=== PATIENT | male | born 1975 | race Caucasian/White ===

== ENCOUNTER 2023-12-19 15:33 | Emergency (ER) | payer OTHER, SELFPAY ==
[2023-12-19 15:38] VITALS: BP 135/95
--- NOTE | 2023-12-19 15:54 | ED.GENMED ---
History of Present Illness
General
Chief Complaint: Crisis Evaluation
Time Seen by Provider: 12/19/23 15:46
History of Present Illness
History of Present Illness:
HPI: Patient is here due to suicidal ideation. He states that his friends helped him get here today and is eager for help. He denies any drug or alcohol use. He denies any medical concerns. His main social stressor involves his 6-year-old son
and his 'narcissist' mother of the child. Children and youth have been involved. He says he had access to pills last night that he would have taken but will not tell me exactly what pills he had.
EXAM:
GENERAL: Well appearing in no distress
HEENT: Moist oral mucosa
CARDIOVASCULAR: No murmurs, borderline tachycardic heart rate, regular rhythm, No chest wall tenderness
PULMONARY: No respiratory distress, breath sounds are clear and equal
ABDOMEN: Soft with no peritoneal signs, no tenderness
NEUROLOGIC: Excellent strength all extremities, no coordination deficits
PSYCHIATRIC: Appears somewhat withdrawn, flat depressed affect and other times has recurrent thoughts that he voices such as being upset about needing to be seen through the emergency department as opposed to going to crisis directly
EXTREMITIES: Nontender, no edema, moves all extremities equally
SKIN: No rash, no lesions
TIME OF INITIAL ENCOUNTER: 4 PM
NUMBER AND COMPLEXITY OF PROBLEMS ADDRESSED AT THE ENCOUNTER
� Chronic conditions affecting care: TBI, smoker, high blood pressure, hyperlipidemia
� Acute Exacerbation and/or Progression of Chronic Illness: This is an acute but is had similar episodes in the past
� Differential Diagnosis includes: Suicidal ideation, suicidal gesture, worsening anxiety/depression
AMOUNT AND/OR COMPLEXITY OF DATA TO BE REVIEWED AND ANALYZED
� I performed an independent evaluation of and my interpretation is:
EKG:
CT:
X-rays:
Laboratory Studies: White count 16.5 of doubtful clinical significance, hemoglobin level normal, no significant chemistry abnormality, salicylates and acetaminophen and alcohol undetected
Other:
� Review of other/old records: The patient was here with chest pain in October 2022
� Clinical information was obtained by an independent historian: None needed
� Prescriptions/Medications Considered but not given:
� Further testing considered but not performed:
RISK OF COMPLICATIONS AND/OR MORBIDITY OR MORTALITY OF PATIENT MANAGEMENT
� Social determinants of health affecting care: Lives at home
� Discussion with other providers: I asked for crisis consult at 4:10 PM
� Escalation of care including admission/observation vs risk of discharge considered: Will check labs as the patient gives a rather vague history however he is willing to be placed somewhere has a 201. As of 6 PM, crisis as they
will see around 6:30 PM. I spoke to crisis at 7:25 PM and they are going to bed search him and feel that he can be discharged from the emergency department to crisis waiting room. Medically cleared at 7:25 PM.
Past History
Past History
ED Past Medical History: Asthma (Asthmatic bronchitis, intermittent), HTN, Hypercholesterolemia and Psychiatric (Anxiety)
ED Past Surgical History: Appendectomy
Social History
Tobacco: Smoker
Alcohol: Occasional
Drug: None
Personal: Other (Engaged)
Living: with family
Employment: Employed
Family History
Family History: Hypertension; Negative Early CAD
Phy Exam
Physical Exam
Physical Exam:
See HPI
Course
Orders/Labs/Results
Orders:
Orders
12/19/23 15:44
1:1 Observation - Suicide/ Violent Behavior As Directed
12/19/23 16:05
Urine Drug Abuse Screen Urgent
12/19/23 16:11
Crisis Consult Urgent
Reason for Consult: si
12/19/23 17:47
Nicotine [Nicoderm Transdermal] 14 mg .ROUTE .STK-MED ONE
12/19/23 18:15
Acetaminophen Urgent
Alcohol Urgent
Complete Blood Count/With Diff Urgent
Comprehensive Metabolic Panel Urgent
Salicylate Urgent
Abnormal Lab Results
12/19/23
18:15
WBC 16.5 H 10^3/uL
(4.8-10.8)
Abs Immat Gran (auto) 0.1 H 10^3/uL
(0-0.05)
Absolute Neuts (auto) 10.3 H 10^3/uL
(1.4-6.5)
Absolute Lymphs (auto) 4.5 H 10^3/uL
(1.2-3.4)
Absolute Monos (auto) 1.1 H 10^3/uL
(0.1-0.6)
Immature Gran % 0.6 H %
(0-0.5)
ALT 82 H U/L
(0-50)
Alkaline Phosphatase 141 H U/L
(38-126)
Salicylates < 1.0 L mg/dl
(2.0-20.0)
Acetaminophen < 10 L ug/ml
(10-30)
12/19/23 18:15
12/19/23 18:15
Vital Signs
Initial and Last Documented VS:
Initial Vital Signs
Temp Pulse Resp BP Pulse Ox
98.9 F 114 16 135/95 97
12/19/23 15:38 12/19/23 15:38 12/19/23 15:38 12/19/23 15:38 12/19/23 15:38
Last Documented Vital Signs
Temp Pulse Resp BP Pulse Ox
98.9 F 114 16 135/95 97
12/19/23 15:38 12/19/23 15:38 12/19/23 15:38 12/19/23 15:38 12/19/23 15:38
*Critical Care Note
Total Time (30-74mins, 75-104mins- exclusive of procedures): Not Applicable
ED Attending Note
-
Portions of this chart may have been created with voice recognition software.� Occasional wrong word or��sound alike� substitutions may have occurred due to the inherent limitations of voice recognition software.
Discharge Plan
Departure
Patient Disposition: [facility]
Date of Disposition: 12/19/23
Time of Disposition: 19:23
Discharge Problem:
Depression with suicidal ideation
Prescriptions:
No Action
clonazepam 0.5 MG tablet
0.5 mg PO PRN PRN (Reason: anxiety)
lamotrigine 100 MG tablet
200 mg PO DAILY
albuterol sulfate 1 PUFF HFA aerosol inhaler
1 - 2 puff inhalation .Q4-6HPRN PRN (Reason: WHEEZING) Qty: 1 0RF
prednisone 10 MG tablet
10 mg PO .TAPER Qty: 45 0RF
Rx Instructions:
Take [id number], [id number], [id number], [id number], [id number]
doxycycline hyclate 100 MG capsule
100 mg PO BID Qty: 28 0RF
cetirizine-pseudoephedrine [Zyrtec-D] 1 EACH tablet extended release 12 hr
1 ea PO BID Qty: 30 0RF
ciprofloxacin HCl 0.2 % dropperette
5 drp otic (ear) BID 7 Days Qty: 14 0RF
Referrals:
NONE,* [Family Provider] -
Interventions
Interventions:
*Risk Screen - Suicide Last Done: 12/19/23 15:43
*General Assessment Last Done: 12/19/23 15:38
*Neglect/Abuse Screening Last Done: 12/19/23 15:38
*ED COVID-19 Vaccine History Last Done: 12/19/23 15:38
ED-Psychological Assessment Last Done: 12/19/23 15:53
Discharge Date and Time
Print Language: TANZANIAN
[2023-12-19 18:21] LABS: % Basophils 0.7 % (0-2); % Eosinophils 1.9 % (0-6); % Immature Granulocytes 0.6 % (0-0.5); % Lymphocytes 27.2 % (20.5-51.1); % Monocytes 6.9 % (1.7-9.3); % Neutrophils 62.7 % (42.2-75.2); Absolute Basophils 0.1 10^3/uL (0-0.2); Absolute Eosinophils 0.3 10^3/uL (0-0.7); Absolute Immature Granulocytes 0.1 10^3/uL (0-0.05); Absolute Lymphocytes 4.5 10^3/uL (1.2-3.4); Absolute Monocytes 1.1 10^3/uL (0.1-0.6); Absolute Neutrophils 10.3 10^3/uL (1.4-6.5); Hematocrit 45.2 % (39.0-52.0); Hemoglobin 15.9 g/dL (13.0-18.0); Mean Corp Hgb Conc. 35.2 g/dL (33.0-37.0); Mean Corpuscular Hgb 29.6 pg (27.0-31.0); Mean Corpuscular Volume 84.2 fL (80.0-94.0); Mean Platelet Volume 9.3 fL (7.4-10.4); Nucleated Red Blood Cells % 0 % (-); Platelet Count 344 10^3/uL (130-400); Red Blood Cell Count 5.37 10^6/uL (4.70-6.10); Red Cell Dist. Width 13.2 % (11.5-14.5); White Blood Cell Count 16.5 10^3/uL (4.8-10.8)
[2023-12-19 18:45] LABS: ALT (SGPT) 82 U/L (0-50); AST (SGOT) 44 U/L (17-59); Acetaminophen < 10 ug/ml (10-30); Albumin 4.7 g/dl (3.5-5.0); Alcohol None Detected; Alkaline Phosphatase 141 U/L (38-126); Blood Urea Nitrogen 17 mg/dl (9-20); Calcium 9.5 mg/dl (8.4-10.2); Carbon Dioxide 29 mmol/L (22-30); Chloride 102 mmol/L (98-107); Glucose 78 mg/dl (70-99); Salicylate < 1.0 mg/dl (2.0-20.0); Sodium 141 mmol/L (135-145); Total Bilirubin 0.5 mg/dl (0.2-1.3); Total Protein 7.2 g/dl (6.3-8.2); eGFR > 60.00
== END 2023-12-20 02:37 ==
LOC: EMR 15:33
PROVIDERS: EMERGENCY PHYSICIAN Emergency Medicine
DX: R45.851 Suicidal ideations (principal); F32.A Depression, unspecified; F17.200 Nicotine dependence, unspecified, uncomplicated; I10 Essential (primary) hypertension
CPT/HCPCS: 99283; 80053; 80143; 80179; 82077; 85025

== ENCOUNTER 2025-01-19 00:20 | Emergency (ER) | payer OTHER, SELFPAY ==
[2025-01-19] VITALS (8 sets, daily range): BP systolic 99–150; BP diastolic 69–108; BMI 26.7
--- NOTE | 2025-01-19 01:05 | ED.GENMED ---
History of Present Illness
General
Chief Complaint: Overdose Unintentional
Source: patient
Time Seen by Provider: 01/19/25 00:51
History of Present Illness
History of Present Illness:
49-year-old male presents the emergency room concerned he was given a drug of some kind surreptitiously. Patient has a friend who has a known drug addiction problem. She uses multiple drugs. He believes that when she gave him a banana it may have
been laced with something because after eating the banana he began to feel tingly, confused had difficulty talking. This occurred about 2 hours prior to arrival. Patient denies using any recreational drugs on his own. The symptoms seem to have
improved somewhat at this point. No shortness of breath. No nausea or vomiting.
Past History
Past History
ED Past Medical History: Asthma (Asthmatic bronchitis, intermittent), HTN, Hypercholesterolemia and Psychiatric (Anxiety)
ED Past Surgical History: Appendectomy
Social History
Tobacco: Smoker
Alcohol: Occasional
Drug: None
Personal: Other (Engaged)
Living: with family
Employment: Employed
Family History
Family History: Hypertension; Negative Early CAD
Phy Exam
Physical Exam
Physical Exam:
General: Awake, Alert, Oriented X3. No acute distress.
Vitals: unremarkable
Head: Atraumatic
Eyes: Pupils equal, EOMI
Throat: Airway intact, no exudates
Neck: Trachea midline
Lungs: Clear and equal b/l
Heart: Regular rate, no murmurs
Abd: Soft, Nontender, No pulsatile mass
Neuro: Nonfocal
Skin: Warm, dry, no rash
Extremities: pulses equal b/l, no edema
Course
Orders/Labs/Results
Orders:
Orders
01/19/25 01:04
Fentanyl, Urine Urgent
Urine Drug Abuse Screen Urgent
Date Specimen was Collected: 01/19/25
Time Specimen was Collected: 00:59
01/19/25 01:23
Alcohol Urgent
Basic Metabolic Panel Urgent
Complete Blood Count/With Diff Urgent
Abnormal Lab Results
01/19/25 01/19/25
01:04 01:23
Sodium 134 L mmol/L
(135-145)
Glucose 102 H mg/dl
(70-99)
U Benzodiazepines Scrn Positive H
(Negative)
U Marijuana (THC) Screen Positive H
(Negative)
01/19/25 01:23
01/19/25 01:23
Vital Signs
Initial and Last Documented VS:
Initial Vital Signs
Temp Pulse Resp BP Pulse Ox
98 F 98 20 150/108 100
01/19/25 00:22 01/19/25 00:22 01/19/25 00:22 01/19/25 00:22 01/19/25 00:22
Last Documented Vital Signs
Temp Pulse Resp BP Pulse Ox
98 F 67 15 107/79 96
01/19/25 00:22 01/19/25 02:00 01/19/25 02:00 01/19/25 02:00 01/19/25 02:00
MDM/Problems Addressed
Differential Diagnosis Includes:
Alcohol intoxication, illicit drug intoxication, anxiety, electrolyte abnormality
MDM/Problems Addressed:
Patient presents feeling unwell after eating a banana that was provided to him by a friend who is known to abuse drugs. He believes he was inadvertently given drugs. Patient is hemodynamically stable. Pupils are equal and reactive. UDS is
positive for benzos as well as marijuana. Patient endorses marijuana use. Cannot explain benzo use. Perhaps this was inadvertently given to him. Patient is hemodynamically stable, awake and alert and breathing normally. No indication for
hospitalization.
*Pulse Oximetry
SaO2: 96
Oxygen Mode of Delivery: Room air
Patient hypoxic: no
*Critical Care Note
Total Time (30-74mins, 75-104mins- exclusive of procedures): Not Applicable
ED Attending Note
-
Portions of this chart may have been created with voice recognition software.� Occasional wrong word or��sound alike� substitutions may have occurred due to the inherent limitations of voice recognition software.
Discharge Plan
Departure
Patient Disposition: Home (Routine Discharge)
Date of Disposition: 01/19/25
Time of Disposition: 02:26
Patient with high blood pressure during this ER visit?: No
Condition: Good
Discharge Problem:
Accidental drug ingestion
Instructions: Accidental Overdose (DC)
Prescriptions:
No Action
clonazepam 0.5 MG tablet
0.5 mg PO PRN PRN (Reason: anxiety)
lamotrigine 100 MG tablet
200 mg PO DAILY
albuterol sulfate 1 PUFF HFA aerosol inhaler
1 - 2 puff inhalation .Q4-6HPRN PRN (Reason: WHEEZING) Qty: 1 0RF
prednisone 10 MG tablet
10 mg PO .TAPER Qty: 45 0RF
Rx Instructions:
Take [id number], [id number], [id number], [id number], [id number]
doxycycline hyclate 100 MG capsule
100 mg PO BID Qty: 28 0RF
cetirizine-pseudoephedrine [Zyrtec-D] 1 EACH tablet extended release 12 hr
1 ea PO BID Qty: 30 0RF
ciprofloxacin HCl 0.2 % dropperette
5 drp otic (ear) BID 7 Days Qty: 14 0RF
Referrals:
Nahed Laboy MD [Family Provider, Internal Medicine]
Interventions
Interventions:
*Risk Screen - Suicide Last Done: 01/19/25 00:22
*General Assessment Last Done: 01/19/25 00:50
*Neglect/Abuse Screening Last Done: 01/19/25 00:22
*ED- Fall Risk Assessment Last Done: 01/19/25 00:50
*ED COVID-19 Vaccine History Last Done: 01/19/25 00:50
*ED Influenza Vaccine History Last Done: 01/19/25 00:50
ED- Cardiac Assessment Last Done: 01/19/25 00:50
ED- Neurological Assessment Last Done: 01/19/25 00:50
ED-Psychological Assessment Last Done: 01/19/25 00:50
ED- Pulmonary Assessment Last Done: 01/19/25 00:50
Discharge Date and Time
Print Language: FRENCH
[2025-01-19 01:44] LABS: Hematocrit 42.3 % (39.0-52.0); Hemoglobin 14.7 g/dL (13.0-18.0); Mean Corp Hgb Conc. 34.8 g/dL (33.0-37.0); Mean Corpuscular Volume 86.3 fL (80.0-94.0); Nucleated Red Blood Cells % 0 % (-); Platelet Count 261 10^3/uL (130-400); Red Cell Dist. Width 12.5 % (11.5-14.5)
[2025-01-19 01:54] LABS: Blood Urea Nitrogen 18 mg/dl (9-20); Calcium 8.8 mg/dl (8.4-10.2); Carbon Dioxide 28 mmol/L (22-30); Chloride 102 mmol/L (98-107); Estimated Creatinine Clearance 103 ml/min; Glucose 102 mg/dl (70-99); Potassium 4.0 mmol/L (3.5-5.1); Sodium 134 mmol/L (135-145); eGFR > 60.00
== END 2025-01-19 07:02 | disposition home or self-care (01) ==
LOC: EMR 00:20
PROVIDERS: EMERGENCY PHYSICIAN Emergency Medicine; FAMILY PHYSICIAN Emergency Medicine
DX: T50.901A Poisoning by unspecified drugs, medicaments and biological substances, accidental (unintentional), initial encounter (principal); R41.0 Disorientation, unspecified; X58.XXXA Exposure to other specified factors, initial encounter; I10 Essential (primary) hypertension; J45.909 Unspecified asthma, uncomplicated; E78.00 Pure hypercholesterolemia, unspecified; F17.200 Nicotine dependence, unspecified, uncomplicated; F12.90 Cannabis use, unspecified, uncomplicated; Z90.49 Acquired absence of other specified parts of digestive tract
CPT/HCPCS: 99283; 80048; 80306; 80307; 82077; 85025